=== PATIENT | female | born 1990 | race Caucasian/White ===

== ENCOUNTER 2019-05-17 18:50 | Emergency (ER) | payer OTHER ==
[2019-05-17 19:30] LABS: BASOPHILS % (AUTO) 0.2 %; EOSINOPHILS % (AUTO) 0.4 %; HGB - HEMOGLOBIN 15.5 g/dL (12.0-16.0); LYMPHOCYTES % (AUTO) 44.9 %; MEAN CORPUSCULAR HEMOGLOBIN 30.9 pg (27.0-31.0); MEAN CORPUSCULAR HGB CONC 34.4 g/dL (32.0-36.0); MEAN CORPUSCULAR VOLUME 89.6 fL (81.0-99.0); MEAN PLATELET VOLUME 9.4 fL (7.9-10.8); MONOCYTES % (AUTO) 9.4 %; NEUTROPHILS % (AUTO) 44.9 %; PLT - PLATELET COUNT 204 10^3/uL (130-450); RED BLOOD COUNT 5.02 10^6/uL (4.20-5.40); RED CELL DISTRIBUTION WIDTH 11.9 % (12.0-15.0); WHITE BLOOD COUNT 4.9 x10^3/uL (4.8-10.8)
[2019-05-17 19:30] LABS: GLUCOSE, URINE (UA) NEGATIVE (NEGATIVE); KETONES,URINE (UA) 15 mg/dL (NEGATIVE); LEUKOCYTE ESTERASE, URINE NEGATIVE (NEGATIVE); NITRITE,URINE NEGATIVE (NEGATIVE); OCCULT BLOOD,URINE TRACE-INTA (NEGATIVE); PH,URINE 7.5 PH (5.0-7.5); PROTEIN,URINE TRACE mg/dL (NEGATIVE); UROBILINOGEN,URINE 1 (NORMAL) E.U./dL (NORMAL)
[2019-05-17 19:32] LABS: ABNORMAL LYMPHS % (MANUAL) 0 %; BAND NEUTROPHILS % (MANUAL) 0 %
[2019-05-17] MEDS ORDERED: LACTATED RINGERS 1,000 ML IV STA (19:33)
[2019-05-17] MEDS ORDERED: MORPHINE 10 MG/ML VIAL IVP STA (19:33)
[2019-05-17] MEDS ORDERED: SODIUM CHLORIDE 0.9% 1,000 ML IV ONE (19:33)
[2019-05-17] MEDS ORDERED: ONDANSETRON 4 MG/2 ML VIAL IVP STA (19:34)
--- NOTE | 2019-05-17 19:35 | ED Physician Documentation ---
PD HPI ABD PAIN - Stated complaint Stated Complaint: N/V/D,FEVER - Chief complaint Chief Complaint: Abd Pain - History obtained from History obtained from: Patient - History of Present Illness Timing - onset: Other (She became sick 5 days ago with fever, body aches, now over the last 3 days the fevers have gone away but she is developed more significant abdominal pain, colonic spasms. Feeling like she will have diarrhea but does not really have diarrhea. She is been quite nauseous. Her boyfriend is sick with a similar illness. She had a remote cholecystectomy.) Review of Systems Constitutional: reports: Fever, Chills, Myalgias Ears: denies: Ear pain Nose: denies: Rhinorrhea / runny nose Throat: denies: Sore throat Respiratory: denies: Dyspnea, Cough PD PAST MEDICAL HISTORY - Past Medical History Past Medical History: No Psych: Depression, Anxiety - Past Surgical History Past Surgical History: Yes General: Cholecystectomy - Present Medications Home Medications: Ambulatory Orders Medication Instructions Recorded Confirmed Loperamide [Imodium] 2 mg PO QID PRN #10 capsule 05/17/19 Ondansetron Odt [Zofran] 4 mg TL Q6H PRN #10 tablet 05/17/19 - Allergies Allergies/Adverse Reactions: Allergies Allergy/AdvReac Type Severity Reaction Status Date / Time nitrofurantoin Allergy Unknown Verified 05/17/19 19:02 [From Voice[employer]] - Social History Does the pt smoke?: No Smoking Status: Never smoker Does the pt drink ETOH?: No Does the pt have substance abuse?: Yes Substance Use and Type: Marijuana - Immunizations Immunizations are current?: Yes PD ED PE NORMAL - Vitals Vital signs reviewed: Yes - General General: Alert and oriented X 3, Other (She appears uncomfortable) - HEENT HEENT: PERRL, EOMI, Other (Dry mucous membranes) - Neck Neck: Supple, no meningeal sign, No bony TTP - Cardiac Cardiac: RRR, No murmur - Respiratory Respiratory: No respiratory distress, Clear bilaterally - Abdomen Abdomen: Normal bowel sounds, Other (Tender in the right mid abdomen without surgical signs) - Back Back: No CVA TTP, No spinal TTP - Derm Derm: Normal color, Warm and dry - Neuro Neuro: Alert and oriented X 3, Normal speech Results - Vitals Vitals: Vital Signs - 24 hr 05/17/19 05/17/19 05/17/19 19:02 20:06 21:04 Temperature 37 C 36.1 C L Heart Rate 58 L 60 75 Respiratory 15 18 18 Rate Blood Pressure 139/103 H 123/95 H 121/78 O2 Saturation 96 100 100 Oxygen O2 Source Room air - Labs Labs: Laboratory Tests 05/17/19 05/17/19 05/17/19 19:14 19:21 19:21 WBC 4.9 RBC 5.02 Hgb 15.5 Hct 45.0 MCV 89.6 MCH 30.9 MCHC 34.4 RDW 11.9 L Plt Count 204 MPV 9.4 Neut # (Auto) Not Reportable Lymph # (Auto) Not Reportable Lyon # (Auto) Not Reportable Eos # (Auto) Not Reportable Baso # (Auto) Not Reportable Absolute Nucleated RBC Not Reportable Total Counted 100 Band Neuts % (Manual) 0 Abnorm Lymph % (Manual) 0 Nucleated RBC % Not Reportable Neutrophils # (Manual) 2.2 Lymphocytes # (Manual) 2.4 Monocytes # (Manual) 0.2 Eosinophils # (Manual) 0.0 Basophils # (Manual) 0.0 Differential Comment MANUAL DIFFERENTIAL Manual Slide Review Indicated WBC Morphology NORMAL APPEARANCE Platelet Estimate NORMAL (130-450,000) Platelet Morphology NORMAL APPEARANCE RBC Morph Micro Appear NORMAL APPEARANCE Sodium 139 Potassium 3.6 Chloride 103 Carbon Dioxide 27 Anion Gap 9.0 BUN 9 Creatinine 0.8 Estimated GFR (MDRD) 84 L Glucose 98 Calcium 9.8 Total Bilirubin 1.2 H AST 49 H ALT 63 H Alkaline Phosphatase 46 Total Protein 8.2 Albumin 4.2 Globulin 4.0 Albumin/Globulin Ratio 1.1 Lipase 46 Serum HCG, Qual Urine Color YELLOW Urine Clarity HAZY Urine pH 7.5 Ur Specific [place]hen[place] 1.010 Urine Protein TRACE Urine Glucose (UA) NEGATIVE Urine Ketones 15 H Urine Occult Blood TRACE-INTA Urine Nitrite NEGATIVE Urine Bilirubin MODERATE H Urine Urobilinogen 1 (NORMAL) Ur Leukocyte Esterase NEGATIVE Urine RBC 0-5 Urine WBC 0-3 Ur Squamous Epith Cells NONE SEEN Amorphous Sediment Moderate Urine Bacteria None Seen Urine Mucus Moderate Strands Ur Microscopic Review INDICATED Urine Culture Comments NOT INDICATED Infectious Lyon Assay 05/17/19 05/17/19 19:21 19:21 WBC RBC Hgb Hct MCV MCH MCHC RDW Plt Count MPV Neut # (Auto) Lymph # (Auto) Lyon # (Auto) Eos # (Auto) Baso # (Auto) Absolute Nucleated RBC Total Counted Band Neuts % (Manual) Abnorm Lymph % (Manual) Nucleated RBC % Neutrophils # (Manual) Lymphocytes # (Manual) Monocytes # (Manual) Eosinophils # (Manual) Basophils # (Manual) Differential Comment Manual Slide Review WBC Morphology Platelet Estimate Platelet Morphology RBC Morph Micro Appear Sodium Potassium Chloride Carbon Dioxide Anion Gap BUN Creatinine Estimated GFR (MDRD) Glucose Calcium Total Bilirubin AST ALT Alkaline Phosphatase Total Protein Albumin Globulin Albumin/Globulin Ratio Lipase Serum HCG, Qual NEGATIVE Urine Color Urine Clarity Urine pH Ur Specific [place] Urine Protein Urine Glucose (UA) Urine Ketones Urine Occult Blood Urine Nitrite Urine Bilirubin Urine Urobilinogen Ur Leukocyte Esterase Urine RBC Urine WBC Ur Squamous Epith Cells Amorphous Sediment Urine Bacteria Urine Mucus Ur Microscopic Review Urine Culture Comments Infectious Lyon Assay NEGATIVE PD MEDICAL DECISION MAKING - ED course ED course: 28-year-old woman with abdominal pain, fevers chills vomiting and diarrhea. Seems mostly viral but she does have some right-sided abdominal tenderness. CT negative except for an appendicolith without other signs of appendicitis, pain- free after meds here. The incidental finding on the CT was discussed with the patient. Passed a p.o. challenge. Departure - Departure Disposition: 01 Home, Self Care Clinical Impression: Vomiting Qualifiers: Vomiting type: unspecified Vomiting Intractability: non-intractable Nausea presence: with nausea Qualified Code(s): R11.2 - Nausea with vomiting, unspecified Abdominal pain Qualifiers: Abdominal location: right lower quadrant Qualified Code(s): R10.31 - Right lower quadrant pain Diarrhea Qualifiers: Diarrhea type: presumed infectious Qualified Code(s): R19.7 - Diarrhea, unspecified Condition: Good Record reviewed to determine appropriate education?: Yes Instructions: Abdominal Pain Prescriptions: Loperamide [Imodium] 2 mg PO QID PRN #10 capsule PRN Reason: Diarrhea Ondansetron Odt [Zofran] 4 mg TL Q6H PRN #10 tablet PRN Reason: Nausea / Vomiting Comments: YOU HAVE MILD ELEVATION OF LIVER ENZYMES, RECHECK THIS WITH YOUR PHYSICIAN. RETURN IF WORSE. Discharge Date/Time: 05/17/19 21:46
[2019-05-17 19:40] LABS: BILIRUBIN,URINE MODERATE (NEGATIVE); CLARITY,URINE HAZY (CLEAR); ICTOTEST,URINE POSITIVE
[2019-05-17 19:46] LABS: ALBUMIN 4.2 g/dL (3.2-5.5); ALBUMIN/GLOBULIN RATIO 1.1 (1.0-2.2); BILIRUBIN,TOTAL 1.2 mg/dL (0.2-1.0); CALCIUM 9.8 mg/dL (8.5-10.3); CREATININE 0.8 mg/dL (0.4-1.0); TOTAL PROTEIN 8.2 g/dL (6.7-8.2)
[2019-05-17 19:55] LABS: AMORPHOUS SEDIMENT,UR Moderate /LPF; BACTERIA,URINE None Seen /HPF (None Seen); MUCUS,URINE Moderate Strands; RBC,URINE 0-5 /HPF (0-5); SQUAMOUS EPITHELIAL CELL,UR NONE SEEN (<= Few)
[2019-05-17 20:01] LABS: HCG,QUALITATIVE BLOOD NEGATIVE
[2019-05-17 20:04] LABS: DIFFERENTIAL COMMENT MANUAL DIFFERENTIAL; LYMPHOCYTES # (MANUAL) 2.4 10^3/uL (1.5-3.5); LYMPHOCYTES % (MANUAL) 49 %; MONOCYTES # (MANUAL) 0.2 10^3/uL (0.0-1.0); PLATELET ESTIMATE, MANUAL NORMAL (130-450,000) (NORMAL); PLATELET MORPHOLOGY NORMAL APPEARANCE (NORMAL); RBC MORPHOLOGY (MULTIPLE) NORMAL APPEARANCE (NORMAL)
[2019-05-17] MEDS ORDERED: IOVERSOL 320 100 ML VIAL IVP ONE ×2 (20:32→21:05)
[2019-05-17 21:05] VITALS: BP 121/78
--- NOTE | 2019-05-17 21:24 | CT Report ---
Reason: IV only, R side abd pain Procedure Date: 05/17/2019 Accession Number: [id number] / [id number] Procedure: CT - Abdomen/Pelvis W CPT Code: Final Report FULL RESULT: EXAM: CT ABDOMEN AND PELVIS EXAM DATE:05/17/2019 09:04 PM CLINICAL HISTORY: IV only, R side abd pain. Nausea and vomiting for 3 days. COMPARISONS: None. TECHNIQUE: Routine helical CT imaging was performed through the abdomen and pelvis with 100 ML OPTIRAY 320 IV contrast. Oral contrast: No. Reconstructions: Coronal and sagittal. In accordance with CT protocol optimization, one or more of the following dose reduction techniques were utilized for this exam: automated exposure control, adjustment of mA and/or KV based on patient size, or use of iterative reconstructive technique. FINDINGS: Lung Bases: Clear lung bases. No pleural effusion. Liver: Unremarkable. Gallbladder/Bile Ducts: Status post cholecystectomy. No bile duct dilatation. Spleen: Unremarkable. Pancreas: Unremarkable. Adrenal Glands: Unremarkable. Kidneys: Unremarkable. No hydronephrosis. Peritoneal Cavity/Bowel: Normal contour and caliber of the bowel. No free fluid, free air or lymphadenopathy. The appendix is normal with a 5 mm appendicolith at the tip. Pelvic Organs: Unremarkable. The bladder and visualized pelvic organs appear normal. Pessary in standard position. Vasculature: Unremarkable. Bones: Unremarkable. Other: None. IMPRESSION: No acute process in the abdomen or pelvis. Normal appendix with a 5 mm appendicolith at the tip. Status post cholecystectomy. RADIA
== END 2019-05-17 21:46 | disposition home or self-care (01) ==
LOC: ED 18:50
DX: R11.2 Nausea with vomiting, unspecified (principal); R10.31 Right lower quadrant pain; R19.7 Diarrhea, unspecified; R74.8 Abnormal levels of other serum enzymes; K38.1 Appendicular concretions; Z90.49 Acquired absence of other specified parts of digestive tract
CPT/HCPCS: 36415; 74177; 80053; 81001; 83690; 84703; 85025; 86308; 96361; 96374; 99284; J7120; Q9967; 81003; 81025; 87086

== ENCOUNTER 2019-05-18 01:18 | Emergency (ER) | payer OTHER ==
[2019-05-18 01:26] VITALS: BP 139/87
[2019-05-18] MEDS ORDERED: PROMETHAZINE 25 MG/1 ML VIAL IM STA (01:49)
--- NOTE | 2019-05-18 02:00 | ED Physician Documentation ---
PD HPI NVD - Stated complaint Stated Complaint: VOMITING - Chief complaint Chief Complaint: Abd Pain - History obtained from History obtained from: Patient - History of Present Illness Timing - onset: How many days ago (3) Timing - duration: Days Timing - details: Gradual onset, Waxing and waning Pain level now: 2 Associated symptoms: Abdominal pain. No: Fever Improved by: Other (no ameliorating factors) Worsened by: Eating (any PO intake including sips of liquids) Recently seen: Emergency Dept (T+R few hours ago for same symptoms) - Additonal information Additional information: patient was discharged few hours ago from this ED with same symptoms (abdominal pain, nausea, and vomiting x 3 days) with w/u that included blood tests and CT A/P. She returns due to ongoing nausea and vomiting. Review of Systems Constitutional: denies: Fever, Chills, Sweats Cardiac: reports: Reviewed and negative Respiratory: reports: Reviewed and negative GI: reports: Abdominal Pain, Nausea, Vomiting. denies: Constipation, Diarrhea : denies: Dysuria, Frequency PD PAST MEDICAL HISTORY - Past Medical History Past Medical History: Yes Psych: Depression, Anxiety - Past Surgical History Past Surgical History: Yes General: Cholecystectomy - Present Medications Home Medications: Ambulatory Orders Medication Instructions Recorded Confirmed Loperamide [Imodium] 2 mg PO QID PRN #10 capsule 05/17/19 Ondansetron Odt [Zofran] 4 mg TL Q6H PRN #10 tablet 05/17/19 Promethazine Supp [Phenergan Supp] 25 mg OR Q6HR PRN #10 supp 05/18/19 Promethazine [Phenergan] 25 mg PO Q6H PRN #10 tab 05/18/19 - Allergies Allergies/Adverse Reactions: Allergies Allergy/AdvReac Type Severity Reaction Status Date / Time nitrofurantoin Allergy Unknown Verified 05/18/19 01:26 [From Macrobid] - Social History Does the pt smoke?: No Smoking Status: Never smoker Does the pt drink ETOH?: No Does the pt have substance abuse?: Yes - Immunizations Immunizations are current?: Yes - POLST Patient has POLST: Yes PD ED PE NORMAL - Vitals Vital signs reviewed: Yes - General General: Alert and oriented X 3, No acute distress, Well developed/nourished - HEENT HEENT: Moist mucous membranes - Neck Neck: Supple, no meningeal sign - Cardiac Cardiac: RRR, No murmur - Respiratory Respiratory: No respiratory distress, Clear bilaterally - Abdomen Abdomen: Soft, Non tender, Non distended - Back Back: No CVA TTP Results - Vitals Vitals: Vital Signs - 24 hr 05/18/19 01:23 Temperature 36.5 C Heart Rate 71 Respiratory 18 Rate Blood Pressure 139/87 H O2 Saturation 98 Oxygen O2 Source Room air PD MEDICAL DECISION MAKING - ED course Complexity details: reviewed old records, re-evaluated patient, considered differential, d/w patient, d/w family ED course: patient wishes to avoid repeating testing/IV/IV fluids; she says she feels well hydrated (after IV fluids on previous ED visit), and just wants better control of her nausea/vomiting. Given IM phenergan with good result; on reevaluation, she reports feeling much better, is able to tolerate fluids PO (water, as well as popsicle) and feels well enough to go home. Departure - Departure Disposition: 01 Home, Self Care Clinical Impression: Vomiting Condition: Good Instructions: ED Diet Vomiting Diarrhea, ED Vomiting Diarrhea Nonspecific Ad Follow-Up: Jimbo Lopez DO [Primary Care Provider] - Prescriptions: Promethazine Supp [Phenergan Supp] 25 mg OR Q6HR PRN #10 supp PRN Reason: Nausea / Vomiting Promethazine [Phenergan] 25 mg PO Q6H PRN #10 tab PRN Reason: Nausea / Vomiting Discharge Date/Time: 05/18/19 02:57
== END 2019-05-18 02:57 | disposition home or self-care (01) ==
LOC: ED 01:18
DX: R11.2 Nausea with vomiting, unspecified (principal)
CPT/HCPCS: 96372; 99283; 99284

== ENCOUNTER 2019-10-13 10:07 | Emergency (ER) | payer OTHER ==
--- NOTE | 2019-10-13 10:21 | ED Physician Documentation ---
PD HPI HEADACHE - Stated complaint Stated Complaint: HEAD PX - Chief complaint Chief Complaint: Neuro - History obtained from History obtained from: Patient - History of Present Illness Timing - onset: Yesterday Timing - onset during: Light activity Timing - duration: Days (1) Timing - details: Gradual onset Worst headache ever?: Worst headache ever? (similar character to prior migraines with slightly worse intensity than prior ones.) Location: Front, Right Quality: Throbbing, Aching Associated symptoms: Nausea, Vision changes (some flashes and wavy lines). No: Fever, Stiff neck, Vomiting, Weakness Improved by: Dark room Worsened by: Light Contributing factors: No: Anticoagulated, Possible carbon monoxide, Trauma Similar symptoms before: Diagnosis (history of migraines since young with currently about 1-2 weekly. Was Rx ?Rizatriptan (dissolving tablet migraine med) that has been mildly to non effective with several uses. Othersie takes Ibuprofen or Tylenol for milder headaches.) Review of Systems Constitutional: denies: Fever, Chills, Myalgias Nose: denies: Rhinorrhea / runny nose, Congestion Throat: denies: Sore throat Respiratory: denies: Cough GI: reports: Nausea. denies: Vomiting, Diarrhea Skin: denies: Rash, Lesions Neurologic: reports: Headache. denies: Focal weakness, Numbness, Near syncope, Altered mental status, Head injury PD PAST MEDICAL HISTORY - Past Medical History Cardiovascular: None Respiratory: None Neuro: Migraines Endocrine/Autoimmune: None Psych: Depression, Anxiety - Past Surgical History Past Surgical History: Yes General: Cholecystectomy - Present Medications Home Medications: Ambulatory Orders Medication Instructions Recorded Confirmed Bupropion HCl [Wellbutrin Xl] 300 mg PO DAILY 10/13/19 10/13/19 Butalb/Acetaminophen/Caffeine 1 each PO BID PRN #20 capsule 10/13/19 [Fioricet 50-300-40 mg Capsule] Etonogestrel/Ethinyl Estradiol 1 applic VG ONCE 10/13/19 10/13/19 [Nuvaring Vaginal Ring] Ibuprofen [Motrin] 600 mg PO TID PRN #25 tab 10/13/19 Ondansetron Odt [Zofran] 4 mg TL Q6H PRN #10 tablet 10/13/19 Propranolol HCl 20 mg PO DAILY 10/13/19 10/13/19 Sertraline [Zoloft] 50 mg ORAL DAILY 10/13/19 10/13/19 cloNIDine HCL [Clonidine HCl] 0.3 mg ORAL DAILY 10/13/19 10/13/19 - Allergies Allergies/Adverse Reactions: Allergies Allergy/AdvReac Type Severity Reaction Status Date / Time nitrofurantoin Allergy Rash Verified 10/13/19 10:10 [From Macrobid] - Social History Does the pt smoke?: No Smoking Status: Never smoker Does the pt drink ETOH?: No Does the pt have substance abuse?: Yes - Immunizations Immunizations are current?: Yes - POLST Patient has POLST: Yes PD ED PE NORMAL - Vitals Vital signs reviewed: Yes - General General: Alert and oriented X 3, No acute distress, Well developed/nourished - HEENT HEENT: PERRL, EOMI (light sensitive), Pharynx benign - Neck Neck: Supple, no meningeal sign, No adenopathy - Cardiac Cardiac: RRR, No murmur - Respiratory Respiratory: Clear bilaterally - Derm Derm: Normal color, Warm and dry - Extremities Extremities: No tenderness to palpate, Normal ROM s pain - Neuro Neuro: Alert and oriented X 3, java software developer 2-12 intact, No motor deficit, No sensory deficit, Normal speech, Other Eye Opening: Spontaneous Motor: Obeys Commands Verbal: Oriented GCS Score: 15 - Psych Psych: Normal mood Results - Vitals Vitals: Vital Signs - 24 hr 10/13/19 10/13/19 10/13/19 10:10 10:25 11:47 Temperature 36.8 C 37.2 C Heart Rate 77 69 69 Respiratory 18 18 16 Rate Blood Pressure 143/102 H 108/66 126/86 H O2 Saturation 99 98 98 10/13/19 12:34 Temperature Heart Rate 89 Respiratory 16 Rate Blood Pressure 131/84 H O2 Saturation 98 Oxygen O2 Source Room air PD MEDICAL DECISION MAKING - ED course Complexity details: re-evaluated patient, considered differential (given IV fluids, toradol, Reglan and Benadryl with about near resolution of the headache. No red flags otherwise to suggest need for labs/imaging. ), d/w patient Departure - Departure Disposition: 01 Home, Self Care Clinical Impression: Migraine headache Qualifiers: Migraine type: without aura Status migrainosus presence: with status migrainosus Intractability: not intractable Qualified Code(s): G43.001 - Migraine without aura, not intractable, with status migrainosus Condition: Stable Record reviewed to determine appropriate education?: Yes Instructions: ED Headache Migraine Follow-Up: Jimbo Lopez DO [Primary Care Provider] - Prescriptions: Butalb/Acetaminophen/Caffeine [Fioricet 50-300-40 mg Capsule] 1 each PO BID PRN #20 capsule PRN Reason: Migraine Ibuprofen [Motrin] 600 mg PO TID PRN #25 tab PRN Reason: Pain Ondansetron Odt [Zofran] 4 mg TL Q6H PRN #10 tablet PRN Reason: Nausea / Vomiting Comments: Stay well-hydrated today. Ibuprofen 600 mg 2 or 3 times a day if needed for mild headaches or medium headaches. Ondansetron if needed for nausea. Add Tylenol if needed for mild headaches. For subsequent migraine type headaches, try Fioricet early in the headache course to see if it works better than the other one you had before. Follow-up with your primary care regarding the effectiveness of these medicines or any other is to add or if they would like to try any initial low-dose daily medicines to reduce occurrences. Return to the ER as needed. Discharge Date/Time: 10/13/19 12:35
[2019-10-13] MEDS ORDERED: KETOROLAC 30 MG/ML VIAL IVP STA (11:00)
[2019-10-13] MEDS ORDERED: diphenhydrAMINE INJ 50 MG/ML VIAL IVP STA (11:00)
[2019-10-13] MEDS ORDERED: METOCLOPRAMIDE 10 MG/2 ML VIAL IVP STA (11:00)
[2019-10-13] MEDS ORDERED: SODIUM CHLORIDE 0.9% 1,000 ML IV ONE (11:00)
[2019-10-13 12:35] VITALS: BP 131/84
== END 2019-10-13 12:35 | disposition home or self-care (01) ==
LOC: ED 10:07
DX: G43.001 Migraine without aura, not intractable, with status migrainosus (principal)
CPT/HCPCS: 96361; 96374; 99283; 99284; J1200; J2765

== ENCOUNTER 2019-10-15 15:59 | Outpatient (CLI) | payer OTHER | END 2019-10-15 16:00 | disposition EMS.NT | LOC: EMS 15:59 | PROVIDERS: ATTEND Surgery | DX: R51 Headache (principal) ==

== ENCOUNTER 2019-10-15 16:48 | Emergency (ER) | payer OTHER ==
[2019-10-15 17:08] LABS: BASOPHILS # (AUTO) 0.1 10^3/uL (0.0-0.1); BASOPHILS % (AUTO) 0.6 %; EOSINOPHILS # (AUTO) 0.1 10^3/uL (0.0-0.7); EOSINOPHILS % (AUTO) 1.3 %; HGB - HEMOGLOBIN 15.3 g/dL (12.0-16.0); LYMPHOCYTES # (AUTO) 2.9 10^3/uL (1.5-3.5); LYMPHOCYTES % (AUTO) 30.6 %; MEAN CORPUSCULAR HEMOGLOBIN 31.5 pg (27.0-31.0); MEAN CORPUSCULAR HGB CONC 34.9 g/dL (32.0-36.0); MEAN CORPUSCULAR VOLUME 90.3 fL (81.0-99.0); MEAN PLATELET VOLUME 9.1 fL (7.9-10.8); MONOCYTES % (AUTO) 9.9 %; NEUTROPHILS # (AUTO) 5.5 10^3/uL (1.5-6.6); NEUTROPHILS % (AUTO) 57.2 %; PLT - PLATELET COUNT 353 10^3/uL (130-450); RED BLOOD COUNT 4.85 10^6/uL (4.20-5.40); RED CELL DISTRIBUTION WIDTH 11.9 % (12.0-15.0); WHITE BLOOD COUNT 9.6 x10^3/uL (4.8-10.8)
[2019-10-15] MEDS: KETOROLAC 30 MG/ML VIAL IVP STA (17:15)
[2019-10-15] MEDS: PROCHLORPERAZINE 10 MG/2 ML VIAL IVP STA (17:15)
[2019-10-15] MEDS: diphenhydrAMINE INJ 50 MG/ML VIAL IVP STA (17:15)
[2019-10-15 17:22] LABS: ALBUMIN 4.3 g/dL (3.2-5.5); BILIRUBIN,TOTAL 0.9 mg/dL (0.2-1.0); CALCIUM 9.2 mg/dL (8.5-10.3); CREATININE 0.8 mg/dL (0.4-1.0); TOTAL PROTEIN 8.4 g/dL (6.7-8.2)
--- NOTE | 2019-10-15 17:39 | ED Physician Documentation ---
History of Present Illness - Stated complaint Stated Complaint: [place] - Chief complaint Chief Complaint: Neuro - History obtained from History obtained from: Patient - History of Present Illness Timing: Today Pain level max: 10 Pain level now: 10 - Additonal information Additional information: 28-year-old female states that she has nearly daily migraine headaches. She states that she took Motrin this morning and then Fioricet without relief. Headache is continued. It is on the left side, radiates from the back of her head to the front. Worse with light and sound. Is nauseated, no vomiting. No fevers. No trauma. Review of Systems Ten Systems: 10 systems reviewed and negative Constitutional: denies: Fever, Chills Eyes: reports: Photophobia Nose: denies: Rhinorrhea / runny nose, Congestion Throat: denies: Sore throat Respiratory: denies: Cough : denies: Dysuria, Frequency, Hesitancy, Now EGA Skin: denies: Rash Musculoskeletal: denies: Neck pain, Back pain Neurologic: denies: Focal weakness, Numbness, Confused, Altered mental status, Head injury, LOC PD PAST MEDICAL HISTORY - Past Medical History Cardiovascular: None Respiratory: None Neuro: Migraines Endocrine/Autoimmune: None GI: None FORMING OPERATOR: None HEENT: None Psych: Depression, Anxiety Musculoskeletal: None Derm: None - Past Surgical History Past Surgical History: Yes General: Cholecystectomy - Present Medications Home Medications: Ambulatory Orders Medication Instructions Recorded Confirmed Bupropion HCl [Wellbutrin Xl] 300 mg PO DAILY 10/13/19 10/13/19 Butalb/Acetaminophen/Caffeine 1 each PO BID PRN #20 capsule 10/13/19 [Fioricet 50-300-40 mg Capsule] Etonogestrel/Ethinyl Estradiol 1 applic VG ONCE 10/13/19 10/13/19 [Nuvaring Vaginal Ring] Ibuprofen [Motrin] 600 mg PO TID PRN #25 tab 10/13/19 Ondansetron Odt [Zofran] 4 mg TL Q6H PRN #10 tablet 10/13/19 Propranolol HCl 20 mg PO DAILY 10/13/19 10/13/19 Sertraline [Zoloft] 50 mg ORAL DAILY 10/13/19 10/13/19 cloNIDine HCL [Clonidine HCl] 0.3 mg ORAL DAILY 10/13/19 10/13/19 - Allergies Allergies/Adverse Reactions: Allergies Allergy/AdvReac Type Severity Reaction Status Date / Time nitrofurantoin Allergy Rash Verified 10/15/19 16:53 [From Macrobid] - Social History Does the pt smoke?: No Smoking Status: Never smoker Does the pt drink ETOH?: No Does the pt have substance abuse?: Yes - Immunizations Immunizations are current?: Yes - POLST Patient has POLST: Yes PD ED PE NORMAL - Vitals Vital signs reviewed: Yes - General General: Alert and oriented X 3, Well developed/nourished, Other (Appears uncomfortable, lying in a darkened room) - HEENT HEENT: PERRL, Ears normal, Moist mucous membranes, Pharynx benign - Neck Neck: Supple, no meningeal sign, No bony TTP - Cardiac Cardiac: RRR, Strong equal pulses - Respiratory Respiratory: No respiratory distress, Clear bilaterally - Abdomen Abdomen: Soft, Non tender, Non distended - Derm Derm: Warm and dry - Extremities Extremities: No calf tenderness / cord - Neuro Neuro: Alert and oriented X 3, validation analyst 2-12 intact, No motor deficit, No sensory deficit, Normal speech Eye Opening: Spontaneous Motor: Obeys Commands Verbal: Oriented GCS Score: 15 - Psych Psych: Normal mood, Normal affect Results - Vitals Vitals: Vital Signs - 24 hr 10/15/19 10/15/19 16:54 17:20 Temperature 36.4 C L Heart Rate 115 H 105 H Respiratory 24 16 Rate Blood Pressure 122/90 H 125/69 O2 Saturation 98 98 Oxygen O2 Source Room air - Labs Labs: Laboratory Tests 10/15/19 10/15/19 17:02 17:02 WBC 9.6 RBC 4.85 Hgb 15.3 Hct 43.8 MCV 90.3 MCH 31.5 H MCHC 34.9 RDW 11.9 L Plt Count 353 MPV 9.1 Neut # (Auto) 5.5 Lymph # (Auto) 2.9 [place] # (Auto) 1.0 Eos # (Auto) 0.1 Baso # (Auto) 0.1 Absolute Nucleated RBC 0.00 Nucleated RBC % 0.0 Sodium 135 Potassium 3.5 Chloride 101 Carbon Dioxide 21 Anion Gap 13.0 BUN 13 Creatinine 0.8 Estimated GFR (MDRD) 84 L Glucose 121 H Calcium 9.2 Total Bilirubin 0.9 AST 28 ALT 37 Alkaline Phosphatase 42 Total Protein 8.4 H Albumin 4.3 Globulin 4.1 Albumin/Globulin Ratio 1.0 Lipase 46 - Rads (name of study) Head CT Radiology: Prelim report reviewed, EMP read contemporaneously, See rad report (No acute intracranial abnormality) PD MEDICAL DECISION MAKING - ED course Complexity details: reviewed results, re-evaluated patient, considered differential, d/w patient ED course: 28-year-old female with her usual migraine headache. Given Toradol, Compazine, Benadryl. Headache down to a 3 out of 10. She request to go home at this time. Patient is well-appearing, nontoxic. Afebrile. No evidence of meningitis. Normal head CT. No evidence of subarachnoid hemorrhage or aneurysm. Patient counseled regarding signs and symptoms for which I believe and urgent re- evaluation would be necessary. Patient with good understanding of and agreement to plan and is comfortable going home at this time This document was made in part using voice recognition software. While efforts are made to proofread this document, sound alike and grammatical errors may occur. Departure - Departure Disposition: 01 Home, Self Care Clinical Impression: Migraine headache Qualifiers: Migraine type: unspecified Status migrainosus presence: without status migrainosus Intractability: not intractable Qualified Code(s): G43.909 - Migraine, unspecified, not intractable, without status migrainosus Condition: Good Instructions: ED Headache Migraine Follow-Up: Jimbo Lopez DO [Primary Care Provider] - Within 1 week Comments: Continue your current medications at home. Return if you worsen. Do not drive or operate heavy machinery tonight. Go home and rest.
--- NOTE | 2019-10-15 18:12 | CT Report ---
Reason: Headache Procedure Date: 10/15/2019 Accession Number: [id number] / [id number] Procedure: CT - HEAD WO CPT Code: Final Report FULL RESULT: EXAM: CT HEAD EXAM DATE: 10/15/2019 06:02 PM. CLINICAL HISTORY: Headache. COMPARISON: None. TECHNIQUE: Multiaxial CT images were obtained from the foramen magnum to the vertex. Reformats: Sagittal and coronal. IV contrast: None. In accordance with CT protocol optimization, one or more of the following dose reduction techniques were utilized for this exam: automated exposure control, adjustment of mA and/or KV based on patient size, or use of iterative reconstructive technique. FINDINGS: Parenchyma: No intraparenchymal hemorrhage. No evidence of mass, midline shift, or CT findings of acute infarction. Andujar-white differentiation is distinct. Extraaxial Spaces: Normal for age. No subdural or epidural collections identified. Ventricles: Normal in size and position. Sinuses and Orbits: Imaged paranasal sinuses, orbits, and mastoids show no significant abnormality. Bones: No evidence of fracture or calvarial defect. Other: None. IMPRESSION: Normal head CT. RADIA
[2019-10-15 18:43] VITALS: BP 132/65
== END 2019-10-15 18:43 | disposition home or self-care (01) ==
LOC: ED 16:48
DX: G43.909 Migraine, unspecified, not intractable, without status migrainosus (principal)
CPT/HCPCS: 36415; 70450; 80053; 83690; 85025; 96374; 99284; J1200

== ENCOUNTER 2019-10-30 10:17 | Outpatient (CLI) | payer OTHER ==
[2019-10-30] MEDS ORDERED: GADOBUTROL 15 MMOL/15 ML VIAL ONE (10:34)
[2019-10-30] MEDS ORDERED: GADOBUTROL 15 MMOL/15 ML VIAL IVP ONE (11:18)
--- NOTE | 2019-10-30 14:43 | MRI Report ---
Reason: MIGRAINES Procedure Date: 10/30/2019 Accession Number: [id number] / [id number] Procedure: MRI - Brain W/WO CPT Code: Final Report FULL RESULT: EXAM: MRI BRAIN WITHOUT AND WITH CONTRAST EXAM DATE: 10/30/2019 11:28 AM. CLINICAL HISTORY: History of migraine headaches. Intense right occipital headache/pressure. Recent daily migraines. COMPARISON: CT head without contrast 10/15/2019. TECHNIQUE: Multiplanar, multisequence T1-weighted and fluid-sensitive MR sequences of the brain were performed before and after administration of intravenous contrast. Sequences optimized for routine evaluation. Other: None. IV Contrast: 11 mL Gadavist. FINDINGS: No cerebellar tonsillar ectopia. No restricted diffusion signal or abnormal magnetic susceptibility is present in the brain parenchyma. Ventricles and sulci are within normal limits. No extra-axial fluid collection is present. No abnormal T2 or FLAIR hyperintensities are present in the brain parenchyma. There is an expected flow-void in the major intracranial vessels at the skull base. No mass is present in either orbit. There is motion degradation on some of the imaging sequences. Scattered paranasal sinus mucosal thickening is present. No enhancing mass is identified in the brain parenchyma. Expected enhancement is present in the major dural venous sinuses. Cavernous sinuses enhance in symmetric fashion. No enhancing mass is present in either Meckel's cave. IMPRESSION: 1. Normal brain MRI. [facility]
== END 2019-10-30 10:18 | disposition home or self-care (01) ==
LOC: DI 10:17
PROVIDERS: ATTEND Family Medicine
DX: G43.709 Chronic migraine without aura, not intractable, without status migrainosus (principal)
CPT/HCPCS: 70553; A9585

== ENCOUNTER 2020-05-04 17:24 | Outpatient (CLI) | payer OTHER | END 2020-05-04 17:25 | disposition home or self-care (01) | LOC: COV 17:24 | PROVIDERS: ATTEND Family Medicine | DX: R50.9 Fever, unspecified (principal); M79.10 Myalgia, unspecified site; R53.83 Other fatigue; R19.7 Diarrhea, unspecified; R09.81 Nasal congestion; R11.2 Nausea with vomiting, unspecified; Z20.828 Contact with and (suspected) exposure to other viral communicable diseases ==

== ENCOUNTER 2020-11-25 09:34 | Emergency (ER) | payer OTHER ==
[2020-11-25 10:48] LABS: BASOPHILS # (AUTO) 0.1 10^3/uL (0.0-0.1); BASOPHILS % (AUTO) 0.4 %; EOSINOPHILS % (AUTO) 0.1 %; HCT - HEMATOCRIT 43.4 % (37.0-47.0); HGB - HEMOGLOBIN 15.1 g/dL (12.0-16.0); LYMPHOCYTES # (AUTO) 1.3 10^3/uL (1.5-3.5); LYMPHOCYTES % (AUTO) 7.9 %; MEAN CORPUSCULAR HEMOGLOBIN 30.6 pg (27.0-31.0); MEAN CORPUSCULAR HGB CONC 34.8 g/dL (32.0-36.0); MEAN CORPUSCULAR VOLUME 87.9 fL (81.0-99.0); MEAN PLATELET VOLUME 9.3 fL (7.9-10.8); MONOCYTES # (AUTO) 1.2 10^3/uL (0.0-1.0); MONOCYTES % (AUTO) 7.7 %; NEUTROPHILS # (AUTO) 13.2 10^3/uL (1.5-6.6); NEUTROPHILS % (AUTO) 83.5 %; PLT - PLATELET COUNT 339 10^3/uL (130-450); RED BLOOD COUNT 4.94 10^6/uL (4.20-5.40); RED CELL DISTRIBUTION WIDTH 12.3 % (12.0-15.0); WHITE BLOOD COUNT 15.8 x10^3/uL (4.8-10.8)
[2020-11-25 10:59] LABS: ALBUMIN 4.9 g/dL (3.2-5.5); ALBUMIN/GLOBULIN RATIO 1.3 (1.0-2.2); BILIRUBIN,TOTAL 0.9 mg/dL (0.2-1.0); CALCIUM 10.1 mg/dL (8.5-10.3); POTASSIUM 3.2 mmol/L (3.5-5.0); TOTAL PROTEIN 8.6 g/dL (6.7-8.2)
[2020-11-25] MEDS ORDERED: SODIUM CHLORIDE 0.9% 1,000 ML IV STA (11:25)
[2020-11-25] MEDS ORDERED: ONDANSETRON 4 MG/2 ML VIAL IVP STA (11:25)
[2020-11-25] MEDS ORDERED: DROPERIDOL 5 MG/2 ML VIAL IVP STA (11:52)
[2020-11-25] MEDS ORDERED: HYDROmorphone 1 MG/ML CARPUJECT IVP STA (11:52)
--- NOTE | 2020-11-25 12:18 | ED Physician Documentation ---
History of Present Illness - Stated complaint Stated Complaint: N/V - Chief complaint Chief Complaint: Abd Pain - History obtained from History obtained from: Patient - Additonal information Additional information: Patient comes emergency department chief complaint of vomiting that started last night. Patient states that her significant other has been ill but has had mainly respiratory symptoms. Patient states she has had a lot of vomiting and is cannot seem to get under control. She states that she vomits fairly easily normally but does not have vomiting like this on a regular basis. No fevers or chills. No diarrhea. No dysuria. Patient is not known to be . She has some epigastric pain but otherwise no abdominal pain. Review of Systems Ten Systems: 10 systems reviewed and negative Constitutional: reports: Reviewed and negative Eyes: reports: Reviewed and negative Ears: reports: Reviewed and negative Nose: reports: Reviewed and negative Throat: reports: Reviewed and negative Cardiac: reports: Reviewed and negative Respiratory: reports: Reviewed and negative GI: reports: Abdominal Pain, Nausea, Vomiting : reports: Reviewed and negative Skin: reports: Reviewed and negative Musculoskeletal: reports: Reviewed and negative Neurologic: reports: Reviewed and negative Psychiatric: reports: Reviewed and negative Endocrine: reports: Reviewed and negative Immunocompromised: reports: Reviewed and negative PD PAST MEDICAL HISTORY - Past Medical History Past Medical History: Yes Cardiovascular: None Respiratory: None Neuro: Migraines Endocrine/Autoimmune: None GI: None ROUTE SERVICE MANAGER: None HEENT: None Psych: Depression, Anxiety Musculoskeletal: None Derm: None - Past Surgical History Past Surgical History: Yes General: Cholecystectomy - Present Medications Home Medications: Ambulatory Orders Medication Instructions Recorded Confirmed Bupropion HCl [Wellbutrin Xl] 300 mg PO DAILY 10/13/19 10/13/19 Butalb/Acetaminophen/Caffeine 1 each PO BID PRN #20 capsule 10/13/19 [Fioricet 50-300-40 mg Capsule] Etonogestrel/Ethinyl Estradiol 1 applic VG ONCE 10/13/19 10/13/19 [Nuvaring Vaginal Ring] Ibuprofen [Motrin] 600 mg PO TID PRN #25 tab 10/13/19 Ondansetron Odt [Zofran] 4 mg TL Q6H PRN #10 tablet 10/13/19 Propranolol HCl 20 mg PO DAILY 10/13/19 10/13/19 Sertraline [Zoloft] 50 mg ORAL DAILY 10/13/19 10/13/19 cloNIDine HCL [Clonidine HCl] 0.3 mg ORAL DAILY 10/13/19 10/13/19 Ondansetron Odt [Zofran] 4 mg TL Q6H PRN #10 tablet 11/25/20 - Allergies Allergies/Adverse Reactions: Allergies Allergy/AdvReac Type Severity Reaction Status Date / Time nitrofurantoin Allergy Rash Verified 11/25/20 09:42 [From Macrobid] - Social History Does the pt smoke?: No Smoking Status: Never smoker Does the pt drink ETOH?: No Does the pt have substance abuse?: Yes - Immunizations Immunizations are current?: Yes - POLST Patient has POLST: Yes PD ED PE NORMAL - Vitals Vital signs reviewed: Yes - General General: Alert and oriented X 3, No acute distress, Well developed/nourished, Other (Patient is actively retching intermittently just before exam but smiles and is able to give a history despite appearing uncomfortable) - HEENT HEENT: Atraumatic, PERRL, EOMI, Moist mucous membranes - Neck Neck: Supple, no meningeal sign - Cardiac Cardiac: RRR, No murmur, Strong equal pulses - Respiratory Respiratory: No respiratory distress, Clear bilaterally - Abdomen Abdomen: Soft, Non distended, Other (Mild tenderness epigastric area. 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, Normal speech - Psych Psych: Normal mood, Normal affect Results - Vitals Vitals: Vital Signs - 24 hr 11/25/20 11/25/20 09:39 13:05 Temperature 35.8 C L 36.6 C Heart Rate 74 88 Respiratory 20 16 Rate Blood Pressure 148/97 H 136/74 H O2 Saturation 99 94 Oxygen O2 Source Room air - Labs Labs: Laboratory Tests 11/25/20 11/25/20 10:38 10:38 WBC 15.8 H RBC 4.94 Hgb 15.1 Hct 43.4 MCV 87.9 MCH 30.6 MCHC 34.8 RDW 12.3 Plt Count 339 MPV 9.3 Neut # (Auto) 13.2 H Lymph # (Auto) 1.3 L Day # (Auto) 1.2 H Eos # (Auto) 0.0 Baso # (Auto) 0.1 Absolute Nucleated RBC 0.00 Nucleated RBC % 0.0 Sodium 139 Potassium 3.2 L Chloride 104 Carbon Dioxide 23 Anion Gap 12.0 BUN 20 Creatinine 1.0 Estimated GFR (MDRD) 64 L Glucose 190 H Calcium 10.1 Total Bilirubin 0.9 AST 27 ALT 38 Alkaline Phosphatase 56 Total Protein 8.6 H Albumin 4.9 Globulin 3.7 Albumin/Globulin Ratio 1.3 Lipase 28 PD MEDICAL DECISION MAKING - ED course Complexity details: reviewed results, re-evaluated patient, considered differential, d/w patient ED course: Otherwise patient was worked up with labs and treated symptomatically with IV fluids, Zofran, droperidol, and Dilaudid. She was found to be feeling much better on re-evaluation, and was stable for d/c home. We have discussed home management of sx, as well as the usual indications for return. Departure - Departure Disposition: 01 Home, Self Care Clinical Impression: Viral syndrome Vomiting Qualifiers: Vomiting type: bilious vomiting Nausea presence: with nausea Qualified Code(s): R11.14 - Bilious vomiting Condition: Stable Instructions: ED Nausea Vomiting Prescriptions: Ondansetron Odt [Zofran] 4 mg TL Q6H PRN #10 tablet PRN Reason: Nausea / Vomiting Discharge Date/Time: 11/25/20 13:06
[2020-11-25 13:07] VITALS: BP 136/74
== END 2020-11-25 13:06 | disposition home or self-care (01) ==
LOC: ED 09:34
DX: B34.9 Viral infection, unspecified (principal); R11.14 Bilious vomiting
CPT/HCPCS: 36415; 80053; 83690; 85025; 96361; 96374; 96375; 99283; J1170

== ENCOUNTER 2023-06-29 11:01 | Outpatient (CLI) | payer OTHER ==
[2023-06-29 11:29] LABS: ALBUMIN 4.1 g/dL (3.2-5.5); BILIRUBIN,DIRECT 0.17 mg/dL (0.03-0.18); BILIRUBIN,TOTAL 0.7 mg/dL (0.2-1.0); CREATININE 0.7 mg/dL (0.6-1.3); POTASSIUM 3.2 mmol/L (3.5-4.5); TOTAL PROTEIN 7.6 g/dL (6.4-8.9)
[2023-06-29 11:43] LABS: THYROID STIMULATING HORMONE 2.64 uIU/mL (0.34-5.60)
[2023-06-29 11:55] LABS: ESTIMATED AVERAGE GLUCOSE 100 mg/dL (70-100); HEMOGLOBIN A1c% 5.1 % (4.27-6.07)
[2023-06-30 07:10] LABS: HIV SCREEN 4TH GENERATION Non Reactive (Non Reactive)
== END 2023-06-29 11:02 | disposition home or self-care (01) ==
LOC: LAB 11:01
PROVIDERS: ATTEND Family Medicine
DX: Z00.00 Encounter for general adult medical examination without abnormal findings (principal); Z11.59 Encounter for screening for other viral diseases; R20.0 Anesthesia of skin
CPT/HCPCS: 36415; 80076; 82565; 82607; 83036; 84132; 84443; 87389

== ENCOUNTER 2024-02-29 11:37 | Outpatient (CLI) | payer OTHER ==
[2024-02-29 11:57] LABS: BASOPHILS # (AUTO) 0.1 10^3/uL (0.0-0.1); BASOPHILS % (AUTO) 0.8 %; EOSINOPHILS # (AUTO) 0.1 10^3/uL (0.0-0.7); EOSINOPHILS % (AUTO) 1.9 %; HCT - HEMATOCRIT 42.7 % (37.0-47.0); HGB - HEMOGLOBIN 14.4 g/dL (12.0-16.0); LYMPHOCYTES # (AUTO) 2.1 10^3/uL (1.5-3.5); LYMPHOCYTES % (AUTO) 33.2 %; MEAN CORPUSCULAR HEMOGLOBIN 30.2 pg (27.0-31.0); MEAN CORPUSCULAR HGB CONC 33.7 g/dL (32.0-36.0); MEAN CORPUSCULAR VOLUME 89.5 fL (81.0-99.0); MEAN PLATELET VOLUME 9.1 fL (7.9-10.8); MONOCYTES # (AUTO) 0.6 10^3/uL (0.0-1.0); MONOCYTES % (AUTO) 10.1 %; NEUTROPHILS # (AUTO) 3.4 10^3/uL (1.5-6.6); NEUTROPHILS % (AUTO) 53.8 %; PLT - PLATELET COUNT 284 10^3/uL (130-450); RED BLOOD COUNT 4.77 10^6/uL (4.20-5.40); RED CELL DISTRIBUTION WIDTH 12.1 % (12.0-15.0); WHITE BLOOD COUNT 6.2 x10^3/uL (4.8-10.8)
[2024-02-29 12:16] LABS: % IRON SATURATION 35 % (20-50); ALBUMIN/GLOBULIN RATIO 1.2 (1.0-2.2); ALKALINE PHOSPHATASE 41 IU/L (42-121); ALT ALANINE AMINOTRANSFERASE 17 IU/L (10-60); AST ASPARTATE AMINOTRANSFERASE 16 IU/L (10-42); BILIRUBIN,TOTAL 0.5 mg/dL (0.2-1.0); BUN - BLOOD UREA NITROGEN 10 mg/dL (6-20); CALCIUM 9.5 mg/dL (8.5-10.3); CARBON DIOXIDE - CO2 26 mmol/L (21-32); CHLORIDE 106 mmol/L (101-111); CHOL/HDL RATIO 3.7 (<4.4); CHOLESTEROL 164 mg/dL; CREATININE 0.7 mg/dL (0.6-1.3); GFR - MDRD 95 (>89); GLUCOSE 90 mg/dL (74-104); HDL CHOLESTEROL 44 mg/dL; IRON 133 ug/dL (50-212); LDL CHOLESTEROL,CALCULATED 90 mg/dL; POTASSIUM 3.8 mmol/L (3.5-4.5); SODIUM 139 mmol/L (135-145); TOTAL IRON BINDING CAPACITY 375 ug/dL (250-450); TOTAL PROTEIN 7.3 g/dL (6.4-8.9); TRANSFERRIN 268 mg/dL (203-362); TRIGLYCERIDES 148 mg/dL; VLDL CHOLESTEROL 30 mg/dL
[2024-02-29 12:23] LABS: THYROID STIMULATING HORMONE 3.79 uIU/mL (0.34-5.60)
[2024-02-29 12:30] LABS: FERRITIN 63.9 ng/mL (11.0-306.8)
[2024-02-29 20:10] LABS: ESTIMATED AVERAGE GLUCOSE 91 mg/dL (70-100); HEMOGLOBIN A1c% 4.8 % (4.27-6.07)
== END 2024-02-29 11:38 | disposition home or self-care (01) ==
LOC: LAB 11:37
PROVIDERS: ATTEND Nurse Practitioner Family
DX: F90.2 Attention-deficit hyperactivity disorder, combined type (principal); F33.1 Major depressive disorder, recurrent, moderate
CPT/HCPCS: 36415; 80053; 80061; 82306; 82607; 82728; 82746; 83036; 83540; 83721; 83735; 84436; 84439; 84443; 84466; 84480; 85025